=== PATIENT | female | born 1945 | race Caucasian/White ===

== ENCOUNTER 2020-12-03 08:39 | Day surgery (SDC) | payer MEDICARE, OTHER ==
[~2020-12-03] VITALS: Ht 167.6 cm; Wt 114.0 kg
[~2020-12-03 08:39] MED LIST: ASPI81CH PO; Antivert25 MG PO; CHOL10002 PO; EVENING PRIMR1000 MG PO; EVENING PRIMROSE; HIGH CHOLESTEROL; INHALER; LAVAP17G PO; LISHYD2025 PO; LISI20 PO; MICO200S PV; MULVITMIND PO; NYST100TC TOP; OMEP20ER PO; PRAV20 PO; ROXICODONE5 MG PO; SULTRIDS PO; TOCO1000 PO; Tylenol325 MG PO; VAGIFEM10 MCG VG; XARELTO10 MG PO
--- NOTE | 2020-12-03 14:50 | NUR ---
12/03/20 5720 JOHNATHAN ROSA 1ml OF SPOT MARKER USED 5ML OF INDIGO/NS INJECTED TO IDENTIFY POLYP BORDER
== END 2020-12-03 10:54 | disposition home or self-care (01) ==
LOC: ORSCSDS 08:39
PROVIDERS: Internal Medicine Gastroenterology
PROC: 0DBK8ZX Excision of Ascending Colon, Via Natural or Artificial Opening Endoscopic, Diagnostic (ICD-10-PCS; principal; 2020-12-03 10:00)
PROC: 0DBL8ZX Excision of Transverse Colon, Via Natural or Artificial Opening Endoscopic, Diagnostic (ICD-10-PCS; principal; 2020-12-03 10:00)
PROC: 0DBN8ZX Excision of Sigmoid Colon, Via Natural or Artificial Opening Endoscopic, Diagnostic (ICD-10-PCS; principal; 2020-12-03 10:00)
PROC: 0DBM8ZX Excision of Descending Colon, Via Natural or Artificial Opening Endoscopic, Diagnostic (ICD-10-PCS; principal; 2020-12-03 10:00)
PROC: 3E0H8KZ Introduction of Other Diagnostic Substance into Lower GI, Via Natural or Artificial Opening Endoscopic (ICD-10-PCS; principal; 2020-12-03 10:00)
DX: Z12.11 Encounter for screening for malignant neoplasm of colon (principal); Z86.010 Personal history of colon polyps; D12.2 Benign neoplasm of ascending colon; D12.3 Benign neoplasm of transverse colon; D12.4 Benign neoplasm of descending colon; D12.5 Benign neoplasm of sigmoid colon; Z79.899 Other long term (current) drug therapy; I10 Essential (primary) hypertension; J45.909 Unspecified asthma, uncomplicated; K21.9 Gastro-esophageal reflux disease without esophagitis; N18.9 Chronic kidney disease, unspecified; E66.01 Morbid (severe) obesity due to excess calories; Z68.41 Body mass index [BMI] 40.0-44.9, adult; E78.00 Pure hypercholesterolemia, unspecified
CPT/HCPCS: 88305; J2704; J7120

== ENCOUNTER → 2021-07-17 | Outpatient (CLI) | payer MEDICARE, OTHER | END | disposition home or self-care (01) | LOC: LAB 07:38 → LAB SHORT 07:38 | DX: L57.0 Actinic keratosis (principal); L81.4 Other melanin hyperpigmentation | CPT/HCPCS: 88305; 88342 ==

== ENCOUNTER 2024-08-30 23:38 | Emergency (ER) | payer MEDICARE, OTHER ==
[~2024-08-30] VITALS: Ht 167.6 cm; Wt 108.4 kg
[~2024-08-30 23:38] MED LIST changes: +DOXE10 PO; +FARXIGA10 MG PO; +MOTION RELIEF25 MG PO
[2024-08-31] MEDS ORDERED: Ketorolac Tromethamine 15mg Vial IM ONE (00:50)
[2024-08-31] MEDS ORDERED: PERCOCET 10-321 EA10 PO (00:51)
[2024-08-31 01:05] VITALS: BP 121/72
== END 2024-08-31 01:16 | disposition home or self-care (01) ==
LOC: ER 23:38
DX: M25.552 Pain in left hip (principal); I10 Essential (primary) hypertension; Z79.899 Other long term (current) drug therapy; Z88.0 Allergy status to penicillin; Z88.6 Allergy status to analgesic agent; Z88.8 Allergy status to other drugs, medicaments and biological substances
CPT/HCPCS: 73502; 96372; 99283-25; J1885